=== PATIENT | male | born 1965 | race Caucasian/White ===

== ENCOUNTER 2023-03-27 07:08 | Day surgery (SDC) | payer OTHER, SELFPAY ==
[2023-03-27] VITALS (16 sets, daily range): BP systolic 128–165; BP diastolic 88–115; PULSE 71–86; RESP 16–21; TEMP 36.1–37; O2SAT 91–97; BMI 26.3
[2023-03-27] MEDS: CEFAZOLIN 2 GM in 0.9 % SODIUM CHLORIDE Mini-bag 100 ML IVPB (07:25)
[2023-03-27] MEDS: SODIUM CHLORIDE 0.9 % (FLUSH) 10 ML SYRINGE IVF (08:00)
[2023-03-27] MEDS: LACTATED RINGERS 1000 ML 1,000 ML 100 ML IV (08:00)
[2023-03-27] MEDS: EPINEPHrine 1 MG in SODIUM CHLORIDE IRRIG SOLUTION 3,000 ML 9003 MG IRRIGATION ×2 (08:02→09:52)
[2023-03-27] MEDS: fentaNYL 100 MCG/2 ML inj IVP (08:09)
[2023-03-27] MEDS: MIDAZOLAM HCL 1 MG/ML inj IVP (08:09)
--- NOTE | 2023-03-27 08:27 | SUR.PREOP ---
TIME?OUT:?0809 PT/RN/MDA?VERIFICATION?OF?SURGICAL?SITE,?PROCEDURE,?AND?CONSENT OBTAINED?PRIOR?TO?INVASIVE?PROCEDURE.
--- NOTE | 2023-03-27 10:12 | P.ORPRC_ITS ---
Procedure Note Date of procedure: 03/27/23 Procedure: PREOPERATIVE DIAGNOSES: 1. Right shoulder rotator cuff [id number] partial-thickness supraspinatus 2. Right shoulder subacromial impingement syndrome. POSTOPERATIVE DIAGNOSES: 1. Right shoulder rotator cuff tear - supraspinatus high-grade partial- thickness tear 2. Right shoulder subacromial impingement syndrome. NAME OF OPERATION: 1. Right shoulder arthroscopic rotator cuff repair. 2. Right shoulder arthroscopic bursectomy, subacromial decompression/partial acromioplasty. SURGEON: Alfred Quinonez MD PATIENT INTAKE REPRESENTATIVE: Esequiel King. Of note, a skilled assistant drafter was critical for this case to aide in patient positioning, suture manipulation, arm positioning, instrument positioning, and closure. ANESTHESIA: General plus preoperative supraclavicular block. EBL: 25 mL IMPLANTS: Arthrex 5.5 mm BioComposite SwiveLock suture anchor (x1); Arthrex 2.6 mm FiberTak RC (x1) COMPLICATIONS: None evident INDICATIONS: The patient is a pleasant, 57-year-old male who has experienced right shoulder pain that has been increasing in recent time. Physical exam and imaging were consistent with a rotator cuff tear. Given their findings, as well as the weakness and pain, and inadequate response to nonoperative management, recommendation was made for surgery. FINDINGS: Exam under anesthesia revealed stable shoulder with excellent range of motion. The diagnostic arthroscopy revealed healthy chondral surfaces of the glenohumeral joint. The Subscapularis tendon was intact and with a healthy attachment. The long head of the biceps tendon was intact. The superior rotator cuff tendon was found to be torn and high-grade partial-thickness manner near the mid supraspinatus portion. On the articular side, this appeared intact, but on the bursal side a probe easily penetrated through the veil of thin, poor integrity tissue. The labrum was degeneratively frayed in the superior aspects. No loose bodies were identified within the pouch or subscapularis recess. PROCEDURE: Following a thorough discussion of risks, benefits, and alternatives, consent was obtained and the right shoulder was marked. The patient was brought to the operating room and placed supine on the operating table. Induction of anesthesia was completed after preoperative supraclavicular block was administered in preop holding. Appropriate time out was performed identifying proper patient, site, and procedure. 2 g IV Ancef was administered within 1 hour of incision preoperatively. The right upper extremity was prepped and draped in the appropriate sterile fashion using ChloraPrep prep. This was after the patient was positioned in the beach chair with their head in neutral alignment and all bony prominences well padded. The shoulder was insufflated with 20mL of normal saline via an 18g spinal needle from a posterior approach. An 11 blade skin incision allowed a blunt trochar to be inserted and diagnostic arthroscopy to be performed with the findings as noted above. An anterior portal was established with an outside in technique. This allowed the probe to be inserted and confirm the diagnostic arthroscopic findings. The shaver was then inserted and allowed minimal debridement of the superior labrum. Following this, the upper border subscapularis was probed and found to be stable. Thereafter, the subacromial space was entered. Here, a complete bursectomy (of which it was abundant) and partial acromioplasty/subacromial decompression was performed with a combination of radiofrequency ablator, the shaver, and a 5.5 mm bur. Further inspection of the supraspinatus and infraspinatus rotator cuff was performed. This identified the tear as noted above. The margins of the tear were debrided, and the greater tuberosity was debrided with a combination of the apollo cautery, shaver, and bur on reverse setting. [After gentle decortication, a 2.6 mm standard FiberTak RC was inserted at the medial footprint near the articular edge. All 4 tails of the suture were passed independently through the torn rotator cuff. These tails were brought to a single lateral 5.5 mm anchor. Excellent reapproximation of the rotator cuff was achieved. The eyelet suture from the lateral anchor was utilized for a small dog ear in the anterior portion. The rotator cuff showed excellent reapproximation to the greater tuberosity with good security upon probing. Prior to anchor drop hammer pile driver operator removal, the eyelet sutures were tugged on for each anchor and found that the anchor had excellent stability within the bone. The shoulder was placed through range of motion and found to be stable. The rotator cuff was re-probed and found to be stable. Instruments were removed. Excess fluid was drained, closure performed with 4-0 Monocryl and Steri-Strips. Dressings were applied. Sling was applied. The patient was awoken from anesthesia and transferred to the PACU in stable condition. A skilled assistant drafter was critical for this case to aid in patient positioning, limb positioning, skill to manipulate arthroscopic instruments and camera, suture management, patient safety, and closure. PLAN: 1. Elbow, forearm, wrist and digit range of motion as tolerated. 2. Encouraged ice. 3. Oxycodone for pain as needed. 4. Sling at all times except for ROM and showering. 5. Follow up with PA visit in 1-2 weeks for wound check. Initiate physical therapy following that visit for passive range of motion. Initiate active assisted range of motion at 2 weeks the and active assisted at 3 weeks given small tear size. May do pendulums now.
--- NOTE | 2023-03-27 10:12 | W.PM.H&PU ---
History & Physical Update History & Physical Update H&P Reviewed and patient assessed: No changes noted
--- NOTE | 2023-03-27 10:30 | W.ANESCHARGE ---
Anesthesia Charges Start Date/Time Anesthesia Start Date: 03/27/23 Anesthesia Start Time: 08:30 Stop Date/Time Anesthesia Stop Date: 03/27/23 Anesthesia Stop Time: 10:30
--- NOTE | 2023-03-27 11:56 | P.NB_ITS ---
Nerve Block Nerve Block Time Seen by Provider: 08:10 Date Seen: 03/27/23 Type of block requested by surgeon for post-operative analgesia: supraclavicular Side: right Time out performed: Yes Verification of patient name: Yes Verification of date of : Yes Site marking: site marked Name of person performing procedure: Aldo Continuous monitoring Was continuous monitoring of O2 sat, B/P, environmental monitoring specialist, recorded every 15 minutes?: Yes Procedure Checklist: sterile prep, needles and gloves Ultrasound guided. Images saved: Yes Medications given in 5ml increments after negative aspiration: Ropivicaine %: 0.5 mL: 20 Needle gauge: 22 Decadron (mg): 10 Precedex (mcg): 25 Patient tolerated procedure well: Yes Block Charges Block Charge (with Pro Fee): Brachial Plexus Use of Ultrasound Machine for Block: Yes- US Guidance/pain block
--- NOTE | 2023-03-27 11:57 | W.ANESCHARGE ---
Anesthesia Charges Start Date/Time Anesthesia Start Date: 03/27/23 Anesthesia Start Time: 08:30 Stop Date/Time Anesthesia Stop Date: 03/27/23 Anesthesia Stop Time: 10:30
== END 2023-03-27 12:20 | disposition home or self-care (01) ==
PROVIDERS: PCP Family Medicine; Visit Provider Orthopaedic Surgery Sports Medicine
PROC: (CPT 29805; principal; 2023-03-27 08:45)
DX: M75.101 Unspecified rotator cuff tear or rupture of right shoulder, not specified as traumatic (principal); M75.41 Impingement syndrome of right shoulder; G89.18 Other acute postprocedural pain
CPT/HCPCS: 29827; 29826; 01630; 64415; 76942; C1713; J0171; J0330; J0690; J1100; J2250; J2371; J2405; J2704; J3010; J7120; L3670

== ENCOUNTER 2023-05-15 13:45 | Outpatient (RCR) | payer OTHER, SELFPAY | END 2023-08-13 10:13 | disposition home or self-care (01) | PROVIDERS: PCP Family Medicine; Visit Provider Physician Assistant Surgical | DX: Z98.890 Other specified postprocedural states (principal); R52 Pain, unspecified; M25.619 Stiffness of unspecified shoulder, not elsewhere classified; R29.898 Other symptoms and signs involving the musculoskeletal system; Z51.89 Encounter for other specified aftercare | CPT/HCPCS: 97110; 97140; 97162 ==